=== PATIENT | female | born 1990 | race Caucasian/White ===

== ENCOUNTER 2024-11-05 09:43 | Emergency (ER) | payer OTHER, SELFPAY ==
[2024-11-05 11:57] VITALS: BP 129/70; TEMP 97; O2SAT 98
== END 2024-11-05 11:57 | disposition home or self-care (01) ==
LOC: M ED 09:43
DX: T58.91XA Toxic effect of carbon monoxide from unspecified source, accidental (unintentional), initial encounter (principal); Z87.891 Personal history of nicotine dependence; Z88.5 Allergy status to narcotic agent; Z88.6 Allergy status to analgesic agent; Z91.040 Latex allergy status

== ENCOUNTER 2024-11-19 17:45 | Emergency (ER) | payer OTHER, SELFPAY ==
[~2024-11-19] VITALS: Ht 152.4 cm; Wt 115.5 kg
[2024-11-19] MEDS: NS (Normal Saline) 0.9% 1,000 ML IV ONE (21:12)
[2024-11-19] MEDS: PANTOPRAZOLE 40MG VIAL IV ONE (21:13)
[2024-11-19] MEDS: PROMETHAZINE 25MG/ML 1ML VIAL IV ONE (21:17)
[2024-11-19] MEDS: MAG SULF 1GM/100ML (MAG RUN) 1 GM in IV 1 EA IV ONE (21:56)
[2024-11-19 22:00] VITALS: TEMP 97.4
[2024-11-19 22:15] VITALS: BP 111/64
[2024-11-19 23:00] VITALS: O2SAT 97
[2024-11-19] MEDS ORDERED: PROM25TA12 PO (23:06)
[2024-11-19] MEDS: KETOROLAC 30 MG/ML 1ML VIAL IV ONE (23:18)
== END 2024-11-19 23:42 | disposition home or self-care (01) ==
LOC: M ED 17:45
DX: G43.909 Migraine, unspecified, not intractable, without status migrainosus (principal); F10.10 Alcohol abuse, uncomplicated; Z88.5 Allergy status to narcotic agent; Z88.6 Allergy status to analgesic agent; Z91.040 Latex allergy status; Z79.899 Other long term (current) drug therapy
CPT/HCPCS: 87486; 87581; 87633; 87798; 96361; 96365; 96366; 96375; 99284; J1100; J1885; J2470; J2550; J3475

== ENCOUNTER 2025-03-14 16:44 | Emergency (ER) | payer OTHER ==
[~2025-03-14] VITALS: Ht 152.4 cm; Wt 114.7 kg
[~2025-03-14 16:44] MED LIST: PROM25TA12 PO; PROT1TAB2 PO
[2025-03-14 17:33] LABS: BASO # 0.0 10^3/uL (0.0-0.2); BASO % 0.2 % (0.0-1.0); EOS # 0.1 10^3/uL (0.0-0.5); EOS % 0.6 % (0.0-3.0); LYMPH # 2.2 10^3/uL (1.5-5.0); LYMPH % 21.4 % (24.0-44.0); MONO # 0.6 10^3/uL (0.0-0.8); MONO % 6.1 % (2.0-8.0); NEUTROPHILS # 7.4 10^3/uL (1.5-8.5); NEUTROPHILS % 71.5 % (36.0-66.0); PLATELET COUNT, AUTOMATED 304 10^3/uL (150-450)
[2025-03-14 17:55] LABS: CALCIUM LEVEL 8.9 MG/DL (8.5-10.1); CARBON DIOXIDE LEVEL 26 MMOL/L (20-31); CHLORIDE LEVEL 104 MMOL/L (98-107); CREATININE FOR GFR 0.85 MG/DL (0.55-1.30); GLOMERULAR FILTRATION RATE > 90.0 (>60); POTASSIUM SERUM 3.9 MMOL/L (3.5-5.1); SODIUM LEVEL 142 MMOL/L (136-145)
[2025-03-14 18:11] LABS: HCG, SERUM QUANTITATIVE 102301.8 MIU/ML (<4.2)
[2025-03-14 19:10] LABS: KETONE, URINE AUTO RFX NEGATIVE (NEGATIVE); MUCUS, URINE RFX LARGE (NEGATIVE); NITRITE, URINE AUTO RFX NEGATIVE (NEGATIVE); RBC, URINE AUTO RFX 3 /HPF (0-3); SQUAM EPITHELIAL CELL UR AURFX 5 /HPF (0-6); WBC, URINE AUTO RFX 8 /HPF (0-3)
[2025-03-14 19:13] LABS: LEUKOCYTE ESTERASE UR AUTO RFX 1+ (NEGATIVE)
[2025-03-14 22:07] LABS: ALT/SGPT 25 U/L (7.0-40); AST/SGOT 18 U/L (<34)
[2025-03-14] MEDS: NS (Normal Saline) 0.9% 1,000 ML IV ONE (22:10)
[2025-03-14] MEDS ORDERED: CEPH500C PO (23:38)
[2025-03-14 23:44] VITALS: BP 128/65; TEMP 97.7; O2SAT 100
== END 2025-03-15 00:03 | disposition home or self-care (01) ==
LOC: M ED 16:44
DX: R42 Dizziness and giddiness (principal); Z32.01 Encounter for pregnancy test, result positive; R82.71 Bacteriuria; R00.0 Tachycardia, unspecified; F17.290 Nicotine dependence, other tobacco product, uncomplicated; Z88.5 Allergy status to narcotic agent; Z91.040 Latex allergy status; Z79.2 Long term (current) use of antibiotics; Z79.899 Other long term (current) drug therapy

== ENCOUNTER 2025-07-17 21:25 | Outpatient (CLI) | payer OTHER ==
[~2025-07-17] VITALS: Ht 152.4 cm; Wt 124.5 kg
[~2025-07-17 21:25] MED LIST changes: +CEPH500C PO
[2025-07-17] MEDS ORDERED: PRENTAB9 PO (21:56)
[2025-07-17] MEDS ORDERED: ACET-907 PO (21:56)
[2025-07-17 21:59] VITALS: BP 115/59; O2SAT 97
[2025-07-17] MEDS ORDERED: HOME MED LIST COMPLETE! XX SCH (22:00)
== END 2025-07-17 22:47 | disposition home or self-care (01) ==
LOC: M LDO 21:25
PROVIDERS: ATTEND Advanced Practice Midwife
DX: O26.893 Other specified pregnancy related conditions, third trimester (principal); O34.219 Maternal care for unspecified type scar from previous cesarean delivery; R10.31 Right lower quadrant pain; Z3A.27 27 weeks gestation of pregnancy
CPT/HCPCS: 59025; G0463

== ENCOUNTER 2025-07-25 00:51 | Emergency (ER) | payer OTHER ==
[~2025-07-25] VITALS: Ht 152.4 cm; Wt 122.7 kg
[~2025-07-25 00:51] MED LIST changes: +ACET-907 PO; +PRENTAB9 PO
[2025-07-25 01:38] LABS: BASO # 0.0 10^3/uL (0.0-0.2); BASO % 0.2 % (0.0-1.0); EOS # 0.1 10^3/uL (0.0-0.5); EOS % 0.7 % (0.0-3.0); LYMPH # 2.8 10^3/uL (1.5-5.0); LYMPH % 18.1 % (24.0-44.0); MONO # 0.8 10^3/uL (0.0-0.8); MONO % 5.0 % (2.0-8.0); NEUTROPHILS # 11.8 10^3/uL (1.5-8.5); NEUTROPHILS % 75.2 % (36.0-66.0); PLATELET COUNT, AUTOMATED 325 10^3/uL (150-450)
[2025-07-25 02:00] LABS: INR 0.99
[2025-07-25 02:06] LABS: CALCIUM LEVEL 8.8 MG/DL (8.5-10.1); CARBON DIOXIDE LEVEL 24 MMOL/L (20-31); CHLORIDE LEVEL 103 MMOL/L (98-107); CK-MB VALUE MASS 1.2 NG/ML (<3.6); CPK CREATINE PHOSPHOKINASE 178 U/L (34-145); CREATININE FOR GFR 0.70 MG/DL (0.55-1.30); GLOMERULAR FILTRATION RATE > 90.0 (>60); MB/CK RELATIVE INDEX 0.67 (< OR =4); POTASSIUM SERUM 3.7 MMOL/L (3.5-5.1); SODIUM LEVEL 138 MMOL/L (136-145)
[2025-07-25 02:09] LABS: FREE T4 1.00 NG/DL (0.89-1.76)
[2025-07-25 03:01] LABS: CK-MB VALUE MASS 1.1 NG/ML (<3.6)
[2025-07-25 03:10] LABS: CPK CREATINE PHOSPHOKINASE 165 U/L (34-145); MB/CK RELATIVE INDEX 0.66 (< OR =4)
[2025-07-25] MEDS: NS 500 ML IV ONE (03:35)
[2025-07-25] MEDS: NS (Normal Saline) 0.9% 1,000 ML IV ONE (03:35)
[2025-07-25 04:29] LABS: ALT/SGPT 11 U/L (7.0-40); AST/SGOT 16 U/L (<34)
[2025-07-25 07:24] VITALS: BP 136/80; TEMP 97.6; O2SAT 99
== END 2025-07-25 07:27 | disposition home or self-care (01) ==
LOC: EDBD 00:51 → M ED 00:51
DX: R00.2 Palpitations (principal); E86.0 Dehydration; K21.9 Gastro-esophageal reflux disease without esophagitis; Z3A.28 28 weeks gestation of pregnancy; Z88.5 Allergy status to narcotic agent; Z91.040 Latex allergy status; Z79.1 Long term (current) use of non-steroidal anti-inflammatories (NSAID); Z79.810 Long term (current) use of selective estrogen receptor modulators (SERMs)

== ENCOUNTER 2025-08-04 23:53 | Outpatient (CLI) | payer OTHER ==
[~2025-08-04] VITALS: Ht 152.4 cm; Wt 125.7 kg
== END 2025-08-05 01:47 | disposition home or self-care (01) ==
LOC: M LDO 23:53
PROVIDERS: ATTEND Obstetrics & Gynecology
DX: O36.8130 Decreased fetal movements, third trimester, not applicable or unspecified (principal); Z3A.30 30 weeks gestation of pregnancy
CPT/HCPCS: 59025; G0463